=== PATIENT | female | born 1965 | race Caucasian/White ===

== ENCOUNTER 2018-08-19 19:22 | Emergency (ER) | payer BC ==
[2018-08-19 19:36] VITALS: BP 145/88
--- NOTE | 2018-08-19 19:50 | ED ---
HPI Chest Pain - HPI Summary HPI Summary: pt presents to the ED for evaluation of her chest pain. she states she has been having it for the past 1.5 weeks. it lasts anywhere from 15 min to hours. she denies any other symptoms except occasional arm pain. she did not take aspirin today. she states her dad had his first ND at age 58. - History of Current Complaint Chief Complaint: UCChestPain Time Seen by Provider: 08/19/18 19:43 Hx Obtained From: Patient Onset/Duration: Started Weeks Ago - 1.5 Timing: Intermittent Initial Severity: Mild Current Severity: Mild Pain Intensity: 5 Chest Pain Radiates To:: Arm Aggravating Factor(s): Nothing Alleviating Factor(s): Nothing - Allergy/Home Medications Allergies/Adverse Reactions: Allergies Allergy/AdvReac Type Severity Reaction Status Date / Time No Known Allergies Allergy Verified 08/19/18 19:30 PMH/Surg Hx/FS Hx/Imm Hx Previously Healthy: Yes Endocrine/Hematology History: Reports: Hx Thyroid Disease - Surgical History Surgery Procedure, Year, and Place: partial thyroidectomy Infectious Disease History: No Infectious Disease History: Denies: Traveled Outside the [place] in Last 30 Days - Social History Alcohol Use: None Substance Use Type: Reports: None Smoking Status (MU): Never Smoked Tobacco Review of Systems Constitutional: Negative Eyes: Negative ENT: Negative Positive: Chest Pain Respiratory: Negative Gastrointestinal: Negative Genitourinary: Negative Musculoskeletal: Negative Skin: Negative Neurological: Negative Psychological: Normal All Other Systems Reviewed And Are Negative: No Physical Exam Triage Information Reviewed: Yes Vital Signs On Initial Exam: Initial Vitals Temp Pulse Resp BP Pulse Ox 98.1 F 96 17 145/88 97 08/19/18 19:27 08/19/18 19:27 08/19/18 19:27 08/19/18 19:27 08/19/18 19:27 Vital Signs Reviewed: Yes Appearance: Positive: Well-Appearing, No Pain Distress, Well-Nourished Skin: Positive: Warm, Dry Head/Face: Positive: Normal Head/Face Inspection Eyes: Positive: Normal, EOMI, NAVEEN ENT: Positive: Normal ENT inspection, Hearing grossly normal, Pharynx normal Neck: Positive: Supple, Nontender Respiratory/Lung Sounds: Positive: Clear to Auscultation, Breath Sounds Present Cardiovascular: Positive: Normal, RRR Abdomen Description: Positive: Nontender, Soft Musculoskeletal: Positive: Normal, Strength/ROM Intact Neurological: Positive: Normal, Sensory/Motor Intact, CN Intact II-III Psychiatric: Positive: Normal AVPU Assessment: Alert Diagnostics - Vital Signs Vital Signs Temp Pulse Resp BP Pulse Ox 08/19/18 19:27 98.1 F 96 17 145/88 97 - Laboratory Lab Statement: Any lab studies that have been ordered have been reviewed, and results considered in the medical decision making process. Chest Pain Course/Dx - Course Course Of Treatment: ekg showed no acute findings, however, I was concerned that a 53 year old female had intermittent chest pain and her father had his first mi at age 58. pt agreed to go to [place] ED. pt deferred asa. she stated she has some in her car and she will take that. she deferred an ambulance ride. I called [facility]. I was not connected to a provider. pt discharged to go to [facility] ed. - Diagnoses Provider Diagnoses: Chest pain Discharge - Sign-Out/Discharge Documenting (check all that apply): Patient Departure All imaging exams completed and their final reports reviewed: No - Discharge Plan Condition: Stable Disposition: HOME-RECOMMEND TO ED Patient Education Materials: Chest Pain (ED) Referrals: No Primary Care Phys,NOPCP [Primary Care Provider] - [facility] [Provider Group] Additional Instructions: Please go to the [facility] ED immediately upon discharge for further evaluation of your chest pain. - Billing Disposition and Condition Condition: STABLE Disposition: Home-Recommend to ED
--- NOTE | 2018-08-25 15:25 | UC ---
Course/Dx - Diagnoses Provider Diagnoses: Chest pain Discharge - Sign-Out/Discharge Documenting (check all that apply): Post-Discharge Follow Up All imaging exams completed and their final reports reviewed: No Studies - Discharge Plan Condition: Stable Disposition: HOME-RECOMMEND TO ED Patient Education Materials: Chest Pain (ED) [facility] No Primary Care Phys,NOPCP [Primary Care Provider] - Additional Instructions: Please go to the [facility] ED immediately upon discharge for further evaluation of your chest pain. - Billing Disposition and Condition Condition: STABLE Disposition: Home-Recommend to ED
== END 2018-08-19 20:11 | disposition home health service (06) ==
LOC: UCCORT 19:22
DX: R07.89 Other chest pain (principal); Z82.49 Family history of ischemic heart disease and other diseases of the circulatory system
CPT/HCPCS: 93005; 99202; G0463